=== PATIENT | female | born 1990 | race Caucasian/White ===

== ENCOUNTER 2018-03-25 19:01 | Inpatient (IN) | payer MEDICARE, MEDICAID ==
--- NOTE | 2018-03-25 19:22 | ED PDOC ---
Arrival/HPI - General Chief Complaint: Psychiatric Evaluation Time Seen by Provider: 03/25/18 19:19 - History of Present Illness Narrative History of Present Illness (Text): 27 y/o F BIBEMS as transfer from [facility] for acute inpatient psychiatric admission for schizophrenia. Patient was accepted prior to arrival by Dr. Jamil and cleared medically at transferring site. Patient denies any current fever or dyspnea. Past Medical History - Infectious Disease Hx of Infectious Diseases: None Family/Social History Family/Social History: No Known Family HX Allergies/Home Meds Allergies/Adverse Reactions: Allergies No Known Allergies Allergy (Verified 03/25/18 19:16) Review of Systems - Physician Review All systems were reviewed & negative as marked: Yes - Review of Systems Constitutional: absent: Fevers Respiratory: absent: SOB Physical Exam - Physical Exam Narrative Physical Exam (Text): Gen: NAD Head: NC Eyes: No scleral icterus ENT: MMM CV: Regular rate Resp: No accessory muscle use Abd: Obese Extremities: No edema Skin: Scars to forearm Neuro: Alert Vital Signs Temp Pulse Resp BP Pulse Ox 03/25/18 19:05 98.3 F 81 18 131/76 97 Disposition/Present on Arrival - Present on Arrival Any Indicators Present on Arrival: Yes History of DVT/PE: No History of Uncontrolled Diabetes: Yes Urinary Catheter: No History of Decub. Ulcer: No History Surgical Site Infection Following: None - Disposition Have Diagnosis and Disposition been Completed?: Yes Diagnosis: Undifferentiated schizophrenia Disposition: HOSPITALIZED Disposition Time: 19:20 Patient Plan: Admission Condition: FAIR
[2018-03-25 20:18] VITALS: O2SAT 100
[2018-03-25] MEDS ORDERED: Alum-Mag Hydrox-Simethicone Susp (30 mL) PO PRN (20:52)
[2018-03-25] MEDS ORDERED: Magnesium Hydroxide Susp 30 ml UD PO PRN (20:52)
[2018-03-25] MEDS: QUEtiapine 200 mg XR Tab PO SCH (21:37)
[2018-03-25] MEDS: Insulin Detemir 100 units/ml Vial (Levemir) SC SCH (21:38)
--- NOTE | 2018-03-25 21:38 | PCM.PSYCH ---
Initial Psychiatric Evaluation - Initial Psychiatric Evaluation Chief Complaint (in patient's own words): Patient speaks very highly of depression. Had self l lacerated her arms. Had initially presented to the [facility] emergency room. Patient's Reaction to Hospitalization: Agreeable History of Present Illness and Precipitating Events: Patient has a long psychiatric history including multiple hospitalizations since her early 20s. Has been diagnosed as having schizophrenic disorder is on disability for this. 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 He is a [place] of [place] who came to the [place] in childhood. Living with an uncle mother lives with sister. Father abandoned family when child younger. Denies a history of substance abuse Denies a victimization history Current Medications: Active Medications Generic Name Dose Route Start Last Admin Trade Name Freq PRN Reason Stop Dose Admin Acetaminophen 650 mg 03/25/18 20:52 Tylenol 325mg Tab PO Q4H PRN Pain, Mild (1-3) Al Hydrox/Mg Hydrox/Simethicone 30 ml 03/25/18 20:52 Maalox Plus 30 Ml PO DAILY PRN Upset Stomach Atorvastatin Calcium 40 mg 03/26/18 17:00 Lipitor PO DIN DANA Citalopram Hydrobromide 20 mg 03/26/18 08:00 Celexa PO DAILY DANA Clonazepam 1 mg 03/26/18 08:00 Klonopin PO DAILY DANA Protocol Insulin Detemir 15 unit 03/25/18 22:00 Levemir SC ACBHS DANA Insulin Human Lispro 0 units 03/25/18 22:00 Humalog Low SC ACHS [facility] Protocol Magnesium Hydroxide 30 ml 03/25/18 20:52 Milk Of Magnesia PO DAILY PRN Constipation Pantoprazole Sodium 40 mg 03/26/18 06:00 Protonix Ec Tab PO 0600 DANA Perphenazine 4 mg 03/25/18 22:00 Perphenazine PO HS DANA Quetiapine Fumarate 300 mg 03/26/18 08:00 Seroquel Xr PO DAILY DANA Protocol Quetiapine Fumarate 200 mg 03/25/18 22:00 Seroquel Xr PO HS DANA Protocol Past Psychiatric History - Past Psychiatric History Prior Professional Help: Has been hospitalized a number of times.. Had a psychiatrist in [place]. Prior Psychiatric Treatment: Past psychiatric history dating back approximately 7 years. Multiple hospit [facility] hospital: [facility] Nature of Treatment: Presumably symptoms stabilization with pharmacologic intervention Explanation of prior treatment: Reports a number of other suicide attempts by insulin overdoses. Records indicate had been comatose for 4 days at [facility] in November 2016 History of Abuse: Uncertain but denies History of ETOH/Drug Use: Denies His denial History of Family Illness: Denies but father abandoned family when child younger Pertinent Medical Hx (Current Medical&Sleep Prob, Allergies): Allergies Allergy/AdvReac Type Severity Reaction Status Date / Time No Known Allergies Allergy Verified 03/25/18 19:16 Metformin HCl [Glucophage] 1 mg PO BID 03/25/18 Quetiapine Fumarate [Seroquel] 700 mg PO DAILY 03/25/18 clonazePAM [Klonopin] 1 mg PO DAILY 03/25/18 Review of Systems - Constitutional Constitutional: UN - EENT Eyes: UNREMARKABLE Ears: As Per HPI, UNREMARKABLE Nose/Mouth/Throat: As Per HPI, UNREMARKABLE - Breasts Breasts: As Per HPI - Cardiovascular Cardiovascular: As Per HPI - Respiratory Respiratory: As Per HPI - Gastrointestinal Gastrointestinal: As Per HPI - Genitourinary Genitourinary: As Per HPI - Reproductive: Female Reproductive:Female: As Per HPI - Menstruation Menstruation: As Per HPI - Musculoskeletal Musculoskeletal: As Par HPI - Integumentary Integumentary: Bleeding Lesions, Other (Self-inflicted scratches on forearms) - Neurological Neurological: As Per HPI - Psychiatric Psychiatric: Anhedonia, Auditory Hallucinations, Behavioral Changes, Suicidal Ideation - Endocrine Endocrine: As Per HPI - Hematologic/Lymphatic Hematologic: UNREMARKABLE Mental Status Examination - Affect Affect: Constricted - Motor Activity Motor Activity: Calm - Reliability in Providing Information Reliability in Providing Information: Fair - Speech Speech: Organized - Mood Mood: Depressed - Formal Thought Process Formal Thought Process: Hallucinations - Hallucinations/Delusions Hallucinations: Auditory - Cognitive Functions Orientation: Person, Place, Situation, Time Sensorium: Alert Attention/Concentration: Attentive Estimate of Intelligence: Average Judgement: Imparied, as evidence by: Poor judgement Memory: Recent intact, as evidence by: Other, Remote intact, as evidenced by: Other - Risk Risk: Suicidal, Self-mutilation - Strength & Assets Inventory Strength & Assets Inventory: Family support (Possible family support), Other - Limitations Limitations: Other (Chronicity) DSM 5 DX - DSM 5 DSM 5 Diagnosis: Undifferentiated schizophrenia Diabetes mellitus - Recommended/Plan of Treatment Treatment Recommendations and Plan of Treatment: We'll further evaluate and treat Patient presently being maintained on 2 antipsychotics Projected ELOS: One week Prognosis: Guarded Discharge Plan and Discharge Criteria: We'll further evaluate living situation will presumably sent to day program upon release - Smoking Cessation Smoking Cessation Initiated: No Reason for not providing: Nonsmoker
[2018-03-25] MEDS ORDERED: QUEtiapine 200 mg XR Tab PO SCH (22:00)
[2018-03-25] MEDS ORDERED: Insulin Lispro (humaLOG) LOW Coverage SC SCH (22:00)
[2018-03-25 22:38] VITALS: RESP 20
[2018-03-25] MEDS: Insulin Lispro (HUMAlog) HIGH Coverage SC SCH (23:51)
--- NOTE | 2018-03-26 00:05 | PCM.BM ---
<Jamila Estrella - Last Filed: 03/26/18 00:02> Treatment Plan Problems - Problems identified on initial assessmt SELF HARM/SUICDIAL IDEATION Date Initiated: 03/25/18 Time Initiated: 21:00 Assessment reference: NA Status: Active Priority: 1 INEFFECTIVE COPING Date Initiated: 03/25/18 Time Initiated: 21:00 Assessment reference: NA Status: Active Priority: 2 AUDITORY HALLUCINATION Date Initiated: 03/25/18 Time Initiated: 21:00 Assessment reference: NA Status: Active Priority: 3 Treatment assets and liabiliti Patient Assests: adapts well, cooperative, educated, motivated, self-reliant, ADL independent, negotiates basic needs, cognitively intact Patient Liabilities: financial problems, relationship conflicts, dietary restrictions, medical problems - Milieu Protocol Maintain good personal hygiene: every other day Encourage regular showers, every shift Remind patient to perform daily oral care, every shift Assist patient to perform ADL's Maintain personal safety: every shift Educate patient to report safety concerns to staff, every shift Monitor environment for contraband/sharps Medication safety: Monitor for expected outcome, potential side effects: every shift, Assess barriers to learning: every shift, Assess readiness for medication education: every shift Milieu Narrative: We'll further evaluate and treat Patient presently being maintained on 2 antipsychotics Family Contact Family involvement: Family/SO is involved Family contact: Patient agrees to contact Discharge/Continuing Care - Education Needs Education Needs: Patient Medication, Patient Diagnosis/Disease Process, Patient Coping Skills, Patient Anger Management skills, Patient Community resources, Patient Uses of Medical Equipment, Patient Health Practices/Safety, Patient Personal Hygiene/Grooming - Discharge Discharge Criteria: Tolerates medication w/o severe side effects, Free of Suicidal thoughts, Free of paranoid thoughts, Free of agitation, Normal sleep pattern, Ability to care for self - Treatment Team Participation Patient/Family/SO Statement: We'll further evaluate and treat Patient presently being maintained on 2 antipsychotics <Speedy Parsons H - Last Filed: 03/26/18 16:03> - Diagnosis (1) Undifferentiated schizophrenia Status: Chronic (2) Undifferentiated schizophrenia Status: Acute Interventions: 03/26/18 15:52 confront anger and self mutilatory experiences <Tanisha Caballero - Last Filed: 03/26/18 16:25>
[2018-03-26 07:53] LABS: ALB/GLOB RATIO 1.6 (1.1-1.8); ALT/SGPT 26 U/L (7-56); AST/SGOT 23 U/L (14-36); BLOOD UREA NITROGEN 10 mg/dL (7-21); CALCIUM 9.3 mg/dL (8.4-10.5); GFR AFRICAN-AMERICAN > 60; GFR NON-AFRICAN AMERICAN > 60; GLUCOSE,FASTING 171 mg/dL (65-110); HDL CHOLESTEROL 33 mg/dL (29-60)
[2018-03-26 08:04] LABS: LDL CHOLESTEROL 69 mg/dL (0-129)
[2018-03-26] MEDS: Pantoprazole 40 mg EC Tab PO SCH (08:48)
[2018-03-26] MEDS: QUEtiapine 300 mg XR Tab PO SCH ×2 (08:48→14:45)
[2018-03-26] MEDS: Insulin Lispro (HUMAlog) HIGH Coverage SC SCH ×4 (08:49→21:40)
[2018-03-26] MEDS: Bacitracin Ointment 30 GM TUBE TOP SCH ×3 (08:57→21:24)
[2018-03-26] MEDS: Insulin Detemir 100 units/ml Vial (Levemir) SC SCH ×2 (08:57→21:26)
--- NOTE | 2018-03-26 15:57 | PCM.PYCHPN ---
Psychiatric Progress Note - Psychiatric Progress Note Patient seen today, length of contact: 35minutes Patient Chief Complaint: Patient speaks very highly of depression. Had self l lacerated her arms. Had initially presented to the [facility] emergency room. Problems Identified/Issues Discussed: chronic psychosis, issues of anger, self mutilatory and self-destructive thoughts and actions Medical Problems: Reports a number of other suicide attempts by insulin overdoses. Records indicate had been comatose for 4 days at [facility] in November 2016 Diagnostic Results: Laboratory Results - last 72 hr 03/25/18 03/26/18 03/26/18 21:33 07:11 07:30 Sodium 138 Potassium 4.0 Chloride 104 Carbon Dioxide 25 Anion Gap 14 BUN 10 Creatinine 0.5 L Est GFR ( Amer) > 60 Est GFR (Non-Af Amer) > 60 POC Glucose (mg/dL) 316 H 171 H Random Glucose 171 H Fasting Glucose 171 H Calcium 9.3 Total Bilirubin 0.6 AST 23 ALT 26 Alkaline Phosphatase 83 Total Protein 6.6 Albumin 4.0 Globulin 2.5 Albumin/Globulin Ratio 1.6 Triglycerides 159 Cholesterol 129 L LDL Cholesterol Direct 69 HDL Cholesterol 33 TSH 3rd Generation 03/26/18 03/26/18 03/26/18 07:30 11:28 14:35 Sodium Potassium Chloride Carbon Dioxide Anion Gap BUN Creatinine Est GFR ( Amer) Est GFR (Non-Af Amer) POC Glucose (mg/dL) 176 H 233 H Random Glucose Fasting Glucose Calcium Total Bilirubin AST ALT Alkaline Phosphatase Total Protein Albumin Globulin Albumin/Globulin Ratio Triglycerides Cholesterol LDL Cholesterol Direct HDL Cholesterol TSH 3rd Generation 1.03 Medication Change: No Medical Record Reviewed: Yes Consults ordered or reviewed: Dr. Khan for internal medicine consulregarding diabetes control Mental Status Examination - Cognitive Function Orientation: Person, Place, Situation, Time Memory: Intact Attention: WNL Concentration: WNL Association: WNL Fund of Knowledge: WN Decription of patient's judgement and insights: has some insight, clouded by issues of anger - Mood Mood: Depressed - Affect Affect: Constricted - Speech Speech: Appropriate - Formal Thought Process Formal Thought Process: Hallucinations, Other - Suicidal Ideation Suicidal Ideation: No - Homicidal Ideation Plan: not presently Goal/Treatment Plan - Goal/Treatment Plan Need for Continued Stay: Remain at risks for inpatient hospitalization, Severe depression anxiety, Discharge may exacerbated symptoms Progress Toward Problem(s) and Goals/Treatment Plan: We'll further evaluate and treat Patient presently being maintained on 2 antipsychotics
[2018-03-26] MEDS: QUEtiapine 200 mg XR Tab PO SCH (21:24)
--- NOTE | 2018-03-27 04:01 | CON ---
DATE: HISTORY OF PRESENT ILLNESS: The patient is 27-year-old, Citizen Of [place] descent. I went to see the patient. She is not very informative, only answers yes or no to the questions. I called patient's mother whose name is Candelario and got further information. According to mother, she is insulin-dependent diabetic and unfortunately, she is a single parent. Her father left her when she was 8-year-old and he settled down somewhere in [place] and never came back in their life. Because of being diabetic and not having father around, she has been depressed from the very early age. According to mother, she is very rodriguez. When things do not go in her way, she gets upset, she threatens to kill herself and she makes this statements very quite often that "life is not worth living, it will solve all the problems if I ." According to mother, she finished high school. She did not want to go to college and she never had any steady job. Usually, she sleeps most of the time. The patient has one brother who is younger than her, who is 24-year-old. Either him or mother asked her to do something and if she does not like, she gets angry and threatens that she would kill herself. She has multiple admissions in [facility] for similar complaints. According to mom, she takes her medication regularly for sometime and then she forgets to take; however, she is a sweet tooth and loves to eat sweet food and then she give herself high dose nsulin and multiple times her sugar has dropped. She is not very complaint with her diabetic diet either. Mother also added that she smokes and she smokes very heavy. When her brother tells her to quit smoking, she also gets angry about that. PAST MEDICAL HISTORY: Significant for; 1. Multiple admissions for depression and unsuccessful suicidal attempts. 2. Insulin-dependent diabetes. 3. Anxiety disorder. ALLERGIES: SHE IS NOT ALLERGIC TO ANY MEDICATIONS. MEDICATIONS AT HOME: She is on perphenazine, omeprazole 20 mg daily, Lipitor 40 mg daily, Celexa 40 mg daily, metformin 1000 twice a day, Lantus 15 unit at bedtime and in the morning, Klonopin 1 mg daily, Seroquel 700 mg daily and insulin sliding scale. SOCIAL HISTORY: She is single, lives with her mother, who is jobless these days, so is her brother. Mother states she has her own issues. She is 47 years old and has a lot of medical issues herself. REVIEW OF SYSTEMS: Significant for being depressed; otherwise, she offers no complaints. PHYSICAL EXAMINATION: GENERAL: She is sleepy, but arousable, and very communicative. VITAL SIGNS: She is afebrile, pulse 75, respiration 20, blood pressure 128/90. LUNGS: Bilateral good airflow. No rhonchi or crackle. HEART: S1 and S2 audible. ABDOMEN: Soft, obese, nontender. No rebound, no guarding. NEUROLOGIC: The patient is sleepy, but arousable. Moves all extremities. LABORATORY DATA: Chemistry; sodium 138, potassium 4, chloride 104, CO2 of 25, BUN 10, creatinine 0.5, blood sugar of 265. ASSESSMENT: 1. Major depression. 2. Suicidal attempt. 3. Morbid obesity. 4. Hyperlipidemia. PLAN: So, plan is I will start the patient on insulin coverage. She has been started on Levemir 15 units before breakfast and before dinner. She is on Protonix, we will continue that. Psych medication will be adjusted by psychiatrist. I will order for lipid profile, hemoglobin A1c in the morning. Sarai Limon MD MTDD
[2018-03-27] MEDS: Pantoprazole 40 mg EC Tab PO SCH (07:10)
[2018-03-27 07:47] LABS: ALB/GLOB RATIO 1.5 (1.1-1.8); ALBUMIN 4.2 g/dL (3.0-4.8); ALT/SGPT 26 U/L (7-56); AST/SGOT 21 U/L (14-36); BLOOD UREA NITROGEN 13 mg/dL (7-21); CALCIUM 9.6 mg/dL (8.4-10.5); GFR AFRICAN-AMERICAN > 60; GFR NON-AFRICAN AMERICAN > 60; HDL CHOLESTEROL 31 mg/dL (29-60)
[2018-03-27 07:52] LABS: LDL CHOLESTEROL 89 mg/dL (0-129)
[2018-03-27 08:05] LABS: FREE T4 1.06 ng/dL (0.78-2.19)
[2018-03-27] MEDS: Insulin Detemir 100 units/ml Vial (Levemir) SC SCH ×2 (08:37→22:16)
[2018-03-27] MEDS: Insulin Lispro (HUMAlog) HIGH Coverage SC SCH ×4 (08:38→22:12)
[2018-03-27] MEDS: QUEtiapine 300 mg XR Tab PO SCH (08:39)
[2018-03-27] MEDS: Bacitracin Ointment 30 GM TUBE TOP SCH ×3 (08:43→17:19)
--- NOTE | 2018-03-27 14:38 | PN ---
DATE: 03/27/2018 SUBJECTIVE: The patient is 27 years old, seen and examined, still not very cooperative, sleepy, but arousable. Not very informative. PHYSICAL EXAMINATION: VITAL SIGNS: She is afebrile, pulse 73, respirations 20, blood pressure 138/80. LUNGS: Bilateral good airflow. No rhonchi or crackle. HEART: S1 and S2 audible. ABDOMEN: Soft. Nontender. No rebound. No guarding. NEUROLOGIC: The patient is sleepy, but arousable. LABORATORY EXAM: Blood pressure is running 250 at breakfast and before lunch is 368. ASSESSMENT: 1. Major depression. 2. Insulin-dependent diabetes. 3. Ex-smoker. 4. Suicidal attempt. The patient had cuts on her left arm that according to mother she got it by her lancets. PLAN: I will add steady dose of Humalog 10 units before breakfast and 10 units before dinner and she will continue on her basal insulin Levemir 15 units before breakfast and lunch and bedtime. We will monitor her blood sugar and reevaluate in the a.m. Sarai Limon MD
--- NOTE | 2018-03-27 14:44 | PCM.PYCHPN ---
Psychiatric Progress Note - Psychiatric Progress Note Patient seen today, length of contact: 25 minutes Patient Chief Complaint: "fine" Problems Identified/Issues Discussed: I reviewed assessment and recent notes. Patient was psychiatrically hospitalized for treatment of depression. She lacerated her arms prior to admission and these wounds were observed during my visit this morning. She is aloof during questioning though superficially responsive. Oriented x3 and she denies any new issues or concerns. Reports that she is "fine". Affect is apathetic and preoccupied. Denies hallucinations and she wasnt observed to be responding to internal stimuli (though records indicate that patient has a history of CAH in the past). Specific delusions were not elicited during this first encounter. Staff have noted patient to be guarded and isolative. She stays mostly in her room and doesn't attend group. Appetite is good and there have been no major behavioral issues. Diagnostic Results: Undifferentiated Schizophrenia r/o Borderline Personality Disorder r/o Anxiety Disorder Medication Change: No Medical Record Reviewed: Yes Mental Status Examination - Cognitive Function Orientation: Person, Place, Situation, Time Memory: Intact Attention: WNL Concentration: WNL Association: WNL Fund of Knowledge: WNL - Mood Mood: Depressed ("fine") - Affect Affect: Constricted - Speech Speech: Appropriate - Formal Thought Process Formal Thought Process: Hallucinations (denied), Other - Suicidal Ideation Suicidal Ideation: No Goal/Treatment Plan - Goal/Treatment Plan Need for Continued Stay: Remain at risks for inpatient hospitalization, Severe depression anxiety, Discharge may exacerbated symptoms Progress Toward Problem(s) and Goals/Treatment Plan: * c/w current tx and plan * Vitals reviewed and noted below: Selected Entries 03/27/18 06:53 Temperature 98.3 F Pulse Rate 73 Respiratory 20 Rate Blood Pressure 138/80 * New weekend labs noted below: Laboratory Results - last 24 hr 03/26/18 03/26/18 03/26/18 07:30 16:25 21:07 Sodium Potassium Chloride Carbon Dioxide Anion Gap BUN Creatinine Est GFR ( Amer) Est GFR (Non-Af Amer) POC Glucose (mg/dL) 265 H 292 H Random Glucose Calcium Total Bilirubin AST ALT Alkaline Phosphatase Total Protein Albumin Globulin Albumin/Globulin Ratio Triglycerides Cholesterol LDL Cholesterol Direct HDL Cholesterol Free T4 TSH 3rd Generation RPR Nonreactive 03/27/18 03/27/18 03/27/18 06:30 06:30 07:22 Sodium 142 Potassium 3.9 Chloride 103 Carbon Dioxide 24 Anion Gap 19 BUN 13 Creatinine 0.6 L Est GFR ( Amer) > 60 Est GFR (Non-Af Amer) > 60 POC Glucose (mg/dL) 250 H Random Glucose 301 H* D Calcium 9.6 Total Bilirubin 0.6 AST 21 ALT 26 Alkaline Phosphatase 97 Total Protein 7.1 Albumin 4.2 Globulin 2.9 Albumin/Globulin Ratio 1.5 Triglycerides 175 H Cholesterol 148 LDL Cholesterol Direct 89 HDL Cholesterol 31 Free T4 1.06 TSH 3rd Generation 1.39 RPR 03/27/18 11:14 Sodium Potassium Chloride Carbon Dioxide Anion Gap BUN Creatinine Est GFR ( Amer) Est GFR (Non-Af Amer) POC Glucose (mg/dL) 368 H Random Glucose Calcium Total Bilirubin AST ALT Alkaline Phosphatase Total Protein Albumin Globulin Albumin/Globulin Ratio Triglycerides Cholesterol LDL Cholesterol Direct HDL Cholesterol Free T4 TSH 3rd Generation RPR
[2018-03-27] MEDS: Insulin Lispro (humaLOG) MIX 75/25(10 ml) SC SCH (18:00)
[2018-03-27] MEDS: QUEtiapine 200 mg XR Tab PO SCH (22:23)
[2018-03-28] MEDS: Pantoprazole 40 mg EC Tab PO SCH (07:00)
[2018-03-28] MEDS: Insulin Lispro (HUMAlog) HIGH Coverage SC SCH ×4 (07:19→21:38)
[2018-03-28] MEDS: QUEtiapine 300 mg XR Tab PO SCH (09:40)
[2018-03-28] MEDS: Bacitracin Ointment 30 GM TUBE TOP SCH ×3 (09:41→17:21)
[2018-03-28] MEDS: Insulin Detemir 100 units/ml Vial (Levemir) SC SCH ×2 (09:42→21:34)
[2018-03-28] MEDS: Insulin Lispro (humaLOG) MIX 75/25(10 ml) SC SCH ×2 (09:44→17:21)
--- NOTE | 2018-03-28 11:00 | PCM.PYCHPN ---
Psychiatric Progress Note - Psychiatric Progress Note Patient seen today, length of contact: 25 minutes Patient Chief Complaint: "fine" Problems Identified/Issues Discussed: I have reviewed assessment and recent notes. Patient was psychiatrically hospitalized for treatment of depression. She lacerated her arms bilaterally prior to admission and these wounds were observed during my visit this morning. She remains aloof during questioning though superficially responsive. Oriented x3. Patient reports that the atmosphere of the unit has been making her more depressed and thus put in a 48 hour letter on Thursday at 10:30 pm. Otherwise she denies any new issues or concerns. Affect is apathetic and preoccupied. Denies hallucinations and she wasnt observed to be responding to internal stimuli (though records indicate that patient has a history of CAH in the past) . Specific delusions were not elicited during either of my weekend encounters. Staff have noted patient to be guarded and isolative. She stays mostly in her room but did attend group on Thursday. Appetite is good and patient reports she has been sleeping well. There have been no major behavioral issues. Diagnostic Results: Undifferentiated Schizophrenia r/o Borderline Personality Disorder r/o Anxiety Disorder Medication Change: No Medical Record Reviewed: Yes Mental Status Examination - Cognitive Function Orientation: Person, Place, Situation, Time Memory: Intact Attention: WNL Concentration: WNL Association: WNL Fund of Knowledge: WNL - Mood Mood: Depressed ("fine") - Affect Affect: Constricted - Speech Speech: Appropriate - Formal Thought Process Formal Thought Process: Hallucinations (denied), Other - Suicidal Ideation Suicidal Ideation: No Goal/Treatment Plan - Goal/Treatment Plan Need for Continued Stay: Remain at risks for inpatient hospitalization, Severe depression anxiety, Discharge may exacerbated symptoms Progress Toward Problem(s) and Goals/Treatment Plan: * c/w current tx and plan * Appreciate f/u by Dr. Limon on 03/27/18~Adding 10 units of Humalog before breakfast and before dinner. Monitoring sugars and adjusting accordingly * Patient put in 48 hour letter at 10:30 pm on Thursday night, will request screening. * Vitals reviewed and noted below: 03/28/18 07:19 Temperature 97.8 F Pulse Rate 69 Respiratory 20 Rate Blood Pressure 114/62 * New weekend labs noted below: Laboratory Results - last 24 hr 03/26/18 03/26/18 03/26/18 07:30 16:25 21:07 Sodium Potassium Chloride Carbon Dioxide Anion Gap BUN Creatinine Est GFR ( Amer) Est GFR (Non-Af Amer) POC Glucose (mg/dL) 265 H 292 H Random Glucose Calcium Total Bilirubin AST ALT Alkaline Phosphatase Total Protein Albumin Globulin Albumin/Globulin Ratio Triglycerides Cholesterol LDL Cholesterol Direct HDL Cholesterol Free T4 TSH 3rd Generation RPR Nonreactive 03/27/18 03/27/18 03/27/18 06:30 06:30 07:22 Sodium 142 Potassium 3.9 Chloride 103 Carbon Dioxide 24 Anion Gap 19 BUN 13 Creatinine 0.6 L Est GFR ( Amer) > 60 Est GFR (Non-Af Amer) > 60 POC Glucose (mg/dL) 250 H Random Glucose 301 H* D Calcium 9.6 Total Bilirubin 0.6 AST 21 ALT 26 Alkaline Phosphatase 97 Total Protein 7.1 Albumin 4.2 Globulin 2.9 Albumin/Globulin Ratio 1.5 Triglycerides 175 H Cholesterol 148 LDL Cholesterol Direct 89 HDL Cholesterol 31 Free T4 1.06 TSH 3rd Generation 1.39 RPR 03/27/18 11:14 Sodium Potassium Chloride Carbon Dioxide Anion Gap BUN Creatinine Est GFR ( Amer) Est GFR (Non-Af Amer) POC Glucose (mg/dL) 368 H Random Glucose Calcium Total Bilirubin AST ALT Alkaline Phosphatase Total Protein Albumin Globulin Albumin/Globulin Ratio Triglycerides Cholesterol LDL Cholesterol Direct HDL Cholesterol Free T4 TSH 3rd Generation RPR
[2018-03-28 17:26] LABS: URINE APPEARANCE SL CLOUDY (CLEAR); URINE BILIRUBIN NEGATIVE (NEGATIVE); URINE BLOOD LARGE (NEGATIVE); URINE COLOR AMBER (YELLOW); URINE GLUCOSE (UA) NEGATIVE (NEGATIVE); URINE LEUKOCYTE ESTERASE SMALL Leu/uL (NEGATIVE); URINE PROTEIN 100 mg/dL (<30 mg/dL); URINE UROBILINOGEN 0.2 E.U./dL (<1 E.U./dL)
[2018-03-28 17:27] LABS: URINE RBC TNTC /hpf (0-2)
[2018-03-28 17:53] LABS: BENZODIAZEPINES, UR NEGATIVE (NEGATIVE)
[2018-03-28 19:16] LABS: BARBITURATES, UR NEGATIVE (NEGATIVE); OPIATES, UR NEGATIVE (NEGATIVE); PHENCYCLIDINE, UR NEGATIVE (NEGATIVE)
[2018-03-28] MEDS: QUEtiapine 200 mg XR Tab PO SCH (21:24)
--- NOTE | 2018-03-28 23:31 | PN ---
DATE: 03/28/2018 FOLLOWUP NOTE SUBJECTIVE: She is comfortable, sitting in chair. No acute distress. No complaints right now. No nausea, no vomiting. Blood sugars are better controlled now. They were in 300 yesterday. She is on high dose insulin sliding scale. PHYSICAL EXAMINATION: GENERAL: Comfortable, afebrile. VITAL STABLE: Temperature 98.7, heart rate 80 per minute, respiratory rate 18 per minute, blood pressure 120/80. HEENT: No pallor. LUNGS: Air entry present and equal bilaterally. No added sounds. CARDIOVASCULAR: S1, S2 normal. No murmur. No gallop. ABDOMEN: Soft, nontender. No hepatosplenomegaly. EXTREMITIES: No edema. NEURO: Awake, alert, oriented x3. LABORATORY DATA: Reviewed. ASSESSMENT: Depression, insulin-dependent diabetes mellitus, ex-smoker, suicidal attempt. PLAN: She is currently on high dose insulin regimen, I recommend continuing that. Blood sugar is better controlled today. We will continue to reevaluate. Continue current medications. Jessica Alan MD
[2018-03-29] MEDS: Pantoprazole 40 mg EC Tab PO SCH (06:35)
[2018-03-29 07:25] VITALS: BP 125/91; PULSE 88; TEMP 98
[2018-03-29] MEDS: Insulin Lispro (humaLOG) MIX 75/25(10 ml) SC SCH (07:53)
[2018-03-29] MEDS: QUEtiapine 300 mg XR Tab PO SCH (07:53)
[2018-03-29] MEDS: Insulin Lispro (HUMAlog) HIGH Coverage SC SCH (07:53)
[2018-03-29] MEDS: Insulin Detemir 100 units/ml Vial (Levemir) SC SCH (07:55)
[2018-03-29] MEDS: Bacitracin Ointment 30 GM TUBE TOP SCH (07:55)
[2018-03-29] MEDS ORDERED: Insulin Lispro (humaLOG) MIX 75/25(10 ml) SC SCH (11:19)
== END 2018-03-29 11:54 | disposition left against medical advice (07) | DRG 885 ==
LOC: ED 19:01 → PSYC 19:19
PROVIDERS: ADMIT Psychiatry & Neurology Addiction Medicine; ATTEND Psychiatry & Neurology Addiction Medicine
PROC: GZ3ZZZZ Medication Management (ICD-10-PCS; principal; 2018-03-25)
DX: F20.3 Undifferentiated schizophrenia (principal); F32.9 Major depressive disorder, single episode, unspecified; E11.9 Type 2 diabetes mellitus without complications; F41.9 Anxiety disorder, unspecified; E66.01 Morbid (severe) obesity due to excess calories; E78.5 Hyperlipidemia, unspecified; Z79.4 Long term (current) use of insulin; Z87.891 Personal history of nicotine dependence